=== PATIENT | female | born 1990 | race African-American/Black ===

== ENCOUNTER → 2016-11-02 | Outpatient (CLI) | payer OTHER ==
--- NOTE | 2016-11-02 13:36 | KCIC ---
Examination: Ultrasound pelvis. HISTORY History of pelvic pain. Technique: Transabdominal, transvaginal ultrasound exam the pelvis. COMPARISON None available. Findings: The uterus measures 9.8 x 4.1 x 3.7 centimeters. The endometrium is 6.7 millimeters in transverse dimension. The right ovary measures 2.8 x 3.9 x 1.8 centimeters. Blood flow identified in the right ovary. The left ovary measures 3.4 x 2.0 x 2.0 centimeters. Blood flow identified in the left ovary. No evidence of free fluid identified in the cul-de-sac. IMPRESSION Unremarkable visualized exam. Electronically signed by: Jv Rodriguez (Nov 02, 2016 13:35:05)
--- NOTE | 2016-11-02 17:04 | KCIC ---
Examination: Ultrasound thyroid HISTORY History of thyroid nodule COMPARISON None available Findings: The right lobe of thyroid gland measures 5.7 x 2.1 0.7 centimeters. The left lobe of the gland measures 5.8 x 2.2 x 1.3 centimeters. The isthmus measures 4 millimeters in diameter in AP dimension.In the right lobe of the thyroid gland there is a heterogeneous nodule identified containing microcalcifications within nodule measuring 2.3 x 1.4 x 1.1 centimeters.There is a 6 millimeter calcification identified in the region of the isthmus Impression : - Heterogeneous nodule measuring 2.3 centimeters identified in the inferior pole of the right lobe of thyroid gland containing multiple microcalcifications. Recommend fine-needle aspiration. - Tiny calcification identified in the isthmus measuring 6 millimeters. Electronically signed by: Jv Rodriguez (Nov 02, 2016 17:02:49)
== END | disposition home or self-care (01) ==
LOC: KCIC US 12:12
PROVIDERS: ATTEND Physician Assistant Medical
DX: R10.2 Pelvic and perineal pain (principal); R22.1 Localized swelling, mass and lump, neck; E04.1 Nontoxic single thyroid nodule
CPT/HCPCS: 76536; 76830; 76856

== ENCOUNTER → 2016-11-15 | Outpatient (CLI) | payer OTHER ==
[~2016-11-15] VITALS: Ht 167.6 cm; Wt 152.0 kg
[~2016-11-15] MED LIST: AMLO2.5T2 PO; HYDR12.58 PO; MULT-47 PO
[2016-11-15 12:38] VITALS: BP 187/101
--- NOTE | 2016-11-15 14:33 | RAD ---
Indication right thyroid nodule. Note is made of an ultrasound examination of the thyroid 11/02/2016 demonstrating a nodule in the right lobe of the thyroid for which histologic sampling had been advised. Image guided biopsy was discussed with the patient. The risks of infection and bleeding were outlined. The possibility of a nondiagnostic study was also discussed. The patient understood the risks associated with the procedure and wished to proceed. Preliminary ultrasound images were obtained and the known nodule inferiorly in the right lobe of the thyroid was reproduced. [employer] images were saved. The skin was prepped and draped in the routine fashion. A medial to lateral biopsy approach was selected. Local anesthesia was accomplished with 1% lidocaine. Under ultrasound guidance 4 FNA samples with 25-gauge needles were obtained. Subsequently 2 Rotex samples were obtained. Patient tolerated the procedure unremarkably. The patient was watched in the department over approximately 15 minutes following the procedure and did well. The biopsy site was dressed in routine fashion and the patient discharged with appropriate instructions. IMPRESSION: Successful sampling, under ultrasound guidance, of dominant nodule in the right lobe of the thyroid
== END | disposition home or self-care (01) ==
LOC: US 11:51
PROVIDERS: ATTEND Surgery
DX: E04.1 Nontoxic single thyroid nodule (principal)
CPT/HCPCS: 76942

== ENCOUNTER → 2016-11-21 | Outpatient (CLI) | payer OTHER ==
[2016-11-15 12:38] VITALS: BP 187/101
[~2016-11-21] MED LIST changes: +IOHEXOL 300 MG/ML 100ML VIAL. IV ONE
--- NOTE | 2016-11-21 15:47 | KCIC ---
PROCEDURE CT abdomen with and without contrast. HISTORY Elevated testosterone, female patient. TECHNIQUE Helical CT imaging of the abdomen is performed before and after 100 cc Omnipaque 300 IV contrast. Post-contrast imaging occurred at 70 seconds and 15 minutes post injection using adrenal protocol. COMPARISON None. FINDINGS The adrenal glands are normal. Punctate nonobstructing calculus lower pole of left kidney. There is a 3 millimeter nonobstructing calculus in the upper pole of the left kidney. No right renal calculus. No perinephric stranding or hydronephrosis. Lung bases are clear. Cardiac size is normal. The liver, gallbladder, spleen, pancreas, and abdominal aortic caliber are normal. Stomach unremarkable. There is no dilated small bowel. There are several subcentimeter mesenteric lymph nodes. No colon wall thickening. Appendix is not imaged. No abdominal free fluid. No acute bone abnormality. Mild scoliosis. IMPRESSION 1. Adrenal glands are normal. No acute abdominal abnormality. 2. There are 2 nonobstructing left renal calculi. Electronically signed by: Dylan Talbot MD (Nov 21, 2016 15:46:46)
== END | disposition home or self-care (01) ==
LOC: KCIC CT 14:35
PROVIDERS: ATTEND Physician Assistant Medical
DX: E34.9 Endocrine disorder, unspecified (principal)
CPT/HCPCS: 74170; Q9967

== ENCOUNTER → 2017-12-06 | Outpatient (CLI) | payer OTHER | END | disposition home or self-care (01) | LOC: US 08:09 | DX: E04.1 Nontoxic single thyroid nodule (principal) | CPT/HCPCS: 76536 ==

== ENCOUNTER → 2018-12-30 | Outpatient (CLI) | payer OTHER ==
[2016-11-15 12:38] VITALS: BP 187/101
[~2018-12-30] MED LIST changes: -IOHEXOL 300 MG/ML 100ML VIAL. IV ONE
--- NOTE | 2018-12-30 14:33 | RAD ---
Thyroid ultrasound 12/30/2018 INDICATION: Follow-up right thyroid nodule COMPARISON STUDY: Thyroid ultrasound November 02, 2016 Discussion: Ultrasound evaluation of the thyroid gland was performed. Static images were submitted to PACS. Right thyroid measures 5.7 x 1.7 x 2.3 cm. Left thyroid measures 5.7 x 2.3 x 1.6 cm. Within the inferior aspect of the right thyroid gland is somewhat poorly defined nodule measuring 1.6 x 1.3 x 1.5 cm. There is a calcification appear to be present. No definitive internal blood flow is identified on color Doppler imaging. Thyroid isthmus measures 4 mm in thickness. Remaining thyroid is normal and homogeneous in appearance. No evidence of hyperemia is seen. IMPRESSION: 1.Partially calcified, shadowing nodule in the inferior right thyroid measuring up to 1.6 cm in diameter. The overall appearance is grossly similar prior exam. Note is made of prior biopsy. 2. Mild enlargement of thyroid gland, grossly similar to comparison study. Electronically signed by: Daniel Lewis MD (12/30/2018 2:30 PM) [id number]
== END | disposition home or self-care (01) ==
LOC: US 10:40
PROVIDERS: ATTEND Surgery
DX: E04.1 Nontoxic single thyroid nodule (principal)
CPT/HCPCS: 76536